=== PATIENT | female | born 1950 | race Caucasian/White ===

== ENCOUNTER 2018-09-27 18:54 | Emergency (ER) | payer SELFPAY ==
[~2018-09-27 18:54] MED LIST: CHOL200072; CLIN300C6 PO; DOCU-7; GEMF600T5 PO; GLU500 PO; IBUP-2218 PO; LEVO500T6 PO; LOSA50TA66 PO; OMEGA KRILL OIL; OXYC1TAB PO; SACC250C1 PO; [UNRECOGNIZED DRUG - OTHER]
--- NOTE | 2018-09-27 19:00 | NUR ---
1ST CALL, PATIENT LEFT WITHOUT BEING SEEN BY DR. FELIX. NO FURTHER CARE PROVIDED FOR PATIENT. 2ND CALL, NO ANSWER. 3RD CALL, NO ANSWER. Addendum: 09/27/18 at 1919 by MEDDCV 1899---1ST CALL, PATIENT LEFT WITHOUT BEING SEEN BY DR. FELIX. NO FURTHER CARE PROVIDED FOR PATIENT. 1909---2ND CALL, NO ANSWER. 1919---3RD CALL, NO ANSWER.
--- NOTE | 2018-09-27 19:00 | NUR ---
PATIENT CALLED TO BE TRIAGE, NO ANSWER.
== END 2018-09-27 19:06 | disposition left against medical advice (07) ==
LOC: MED 18:54
DX: Z53.21 Procedure and treatment not carried out due to patient leaving prior to being seen by health care provider (principal)

== ENCOUNTER 2022-08-31 15:20 | Emergency (ER) | payer MEDICARE ==
[~2022-08-31] VITALS: Ht 162.6 cm; Wt 62.3 kg
[~2022-08-31 15:20] MED LIST changes: -CLIN300C6 PO; +CLIN300C61 PO
[2022-08-31 15:41] VITALS: BP 177/78
--- NOTE | 2022-08-31 15:50 | NUR ---
PT AMB TO BED 6.
--- NOTE | 2022-08-31 16:02 | NUR ---
DR ONEILL AT BEDSIDE.
--- NOTE | 2022-08-31 16:04 | NUR ---
72 Y/O F BIB SELF REFERRED FROM CLINIC /O LOSS OF VISON RIGHT EYE& PAIN STATED AT 10 AM TODAY. PMH: HTN, STOLL PALSY, GOLD EYELID IMPLANT, LEFT KIDNEY STONE
--- NOTE | 2022-08-31 16:13 | NUR ---
Patient discharged with v/s stable. Written and verbal after care instructions given and explained. Patient verbalized understanding. Ambulatory with steady gait. All questions addressed prior to discharge. Advised to follow up with PMD.
--- NOTE | 2022-08-31 16:14 | NUR ---
The patient's care was reviewed and supervised by Keesha Figueroa, RN, RN.
== END 2022-08-31 16:13 | disposition home or self-care (01) ==
LOC: MED 15:20
DX: H54.61 Unqualified visual loss, right eye, normal vision left eye (principal); J45.909 Unspecified asthma, uncomplicated; I10 Essential (primary) hypertension; E11.9 Type 2 diabetes mellitus without complications; Z79.4 Long term (current) use of insulin; Z79.899 Other long term (current) drug therapy; Z88.2 Allergy status to sulfonamides; Z88.8 Allergy status to other drugs, medicaments and biological substances
CPT/HCPCS: 99281

== ENCOUNTER 2023-01-03 15:20 | Emergency (ER) | payer MEDICARE ==
[~2023-01-03] VITALS: Ht 162.6 cm; Wt 59.0 kg
[2023-01-03 15:49] VITALS: BP 142/95; PULSE 75; RESP 20; TEMP 98
--- NOTE | 2023-01-03 17:00 | NUR ---
X-Ray at bedside.
[2023-01-03] MEDS ORDERED: ACETAMINOPHEN 325 MG TAB PO ONE (17:55)
[2023-01-03 22:51] VITALS: O2SAT 98
== END 2023-01-03 18:44 | disposition home or self-care (01) ==
LOC: MED 15:20
DX: S42.201A Unspecified fracture of upper end of right humerus, initial encounter for closed fracture (principal); J45.909 Unspecified asthma, uncomplicated; E11.9 Type 2 diabetes mellitus without complications; I10 Essential (primary) hypertension; E78.5 Hyperlipidemia, unspecified; Z98.890 Other specified postprocedural states; Z79.899 Other long term (current) drug therapy; Z79.2 Long term (current) use of antibiotics; Z79.1 Long term (current) use of non-steroidal anti-inflammatories (NSAID); Z88.2 Allergy status to sulfonamides; Z88.5 Allergy status to narcotic agent; W01.0XXA Fall on same level from slipping, tripping and stumbling without subsequent striking against object, initial encounter; Y92.89 Other specified places as the place of occurrence of the external cause; Y93.89 Activity, other specified; Y99.8 Other external cause status
CPT/HCPCS: 73030; 99283

== ENCOUNTER 2023-03-30 19:36 | Emergency (ER) | payer MEDICARE ==
[~2023-03-30] VITALS: Ht 167.6 cm; Wt 81.6 kg
[2023-03-30 19:39] VITALS: BP 143/76; PULSE 98; RESP 20; TEMP 100.5
[2023-03-30] MEDS ORDERED: cefTRIAXone 1,000 MG in DEXT 5% MINI-BAG PLUS 50 ML IV ONE (20:20)
[2023-03-30] MEDS ORDERED: cefTRIAXone 1,000 MG VIAL ONE (20:29)
[2023-03-30 20:51] LABS: BASOPHILS # (AUTO) 0.1 K/uL (0.00-0.22); BASOPHILS % (AUTO) 0.5 % (0.0-2.0); EOSINOPHILS % (AUTO) 0.3 % (0.0-4.0); HEMATOCRIT 33.1 % (36-48); HEMOGLOBIN 10.5 g/dL (12.0-16.0); LYMPHOCYTES # (AUTO) 0.3 K/uL (2.5-16.5); LYMPHOCYTES % (AUTO) 2.6 % (20.5-51.1); MEAN CORPUSCULAR HEMOGLOBIN 19 pg (27-31); MEAN CORPUSCULAR HGB CONC 32 g/dL (33-37); MEAN CORPUSCULAR VOLUME 60.7 fL (80-94); MONOCYTES # (AUTO) 0.7 K/uL (0.8-1.0); MONOCYTES % (AUTO) 6.4 % (1.7-9.3); NEUTROPHILS # (AUTO) 10.1 K/uL (1.8-7.7); NEUTROPHILS % (AUTO) 90.2 % (42.2-75.2); PLATELET COUNT (AUTO) 229 K/uL (140-450); RED BLOOD CELL COUNT(AUTO) 5.46 MIL/uL (4.20-5.40); RED CELL DISTRIBUTION WIDTH 16.6 % (11.6-13.7); WHITE BLOOD COUNT (AUTO) 11.2 K/uL (4.8-10.8)
[2023-03-30 21:14] LABS: ALANINE AMINOTRANSFERASE 14 U/L (12-78); ALKALINE PHOSPHATASE 106 U/L (50-136); ASPARTATE AMINOTRANSFERASE 13 U/L (15-37); CALCIUM 8.7 mg/dL (8.5-10.1); CARBON DIOXIDE 23.3 mmol/L (21-32); CHLORIDE 104 mmol/L (98-107); CREATININE 1.7 mg/dL (0.6-1.3); GLUCOSE 132 mg/dL (74-106); POTASSIUM 3.3 mmol/L (3.5-5.1); SODIUM SERUM 139 mmol/L (136-145); TOTAL BILIRUBIN 1.3 mg/dL (0.0-1.0); TOTAL PROTEIN, SERUM 6.8 g/dL (6.4-8.2); UREA NITROGEN, BLOOD 45 mg/dL (7-18)
[2023-03-30 22:20] VITALS: O2SAT 97
[2023-03-30 22:24] LABS: APPEARANCE,URINE CLEAR (CLEAR); BILIRUBIN,URINE NEGATIVE (NEGATIVE); BLOOD, URINE NEGATIVE (NEGATIVE); COLOR,URINE YELLOW (YELLOW); LEUKOCYTE ESTERASE ,URINE TRACE (NEGATIVE); NITRITE, URINE NEGATIVE (NEGATIVE); PROTEIN,URINE TRACE (NEGATIVE); UGLUCOSE NEGATIVE (NEGATIVE); UROBILINOGEN,URINE 0.2 EU/dL (0.2 - 1)
[2023-03-30 22:36] LABS: RBC,URINE 0-5 /HPF (0-5)
[2023-03-30 22:37] LABS: BACTERIA,URINE 1+ /HPF (None Seen); SQUAMOUS EPITHELIAL CELL,UR 0-3 (FEW) /LPF (0-3 (FEW)); WBC,URINE 0-5 /HPF (0-5)
[2023-03-30 22:45] LABS: FLU A ANTIGEN negative (NEGATIVE); FLU B ANTIGEN NEGATIVE (NEGATIVE)
[2023-03-31 00:22] VITALS: O2SAT 97
[2023-03-31] MEDS ORDERED: NACL 0.9% 1,000 ML IV ONE ×2 (00:30→07:00)
[2023-03-31 01:55] LABS: BLOOD GAS PCO2 25.5 mmHg (35-45); BLOOD GAS PH 7.439 (7.35-7.45); BLOOD GAS PO2 98.8 mmHg (75-100)
[2023-03-31 01:56] LABS: BLOOD GAS HCO3 16.9 mmol/L (22-26)
[2023-03-31 01:57] LABS: BLOOD GAS O2 SAT% 97.1 % (92.0-98.5)
[2023-03-31 03:15] VITALS: O2SAT 98
[2023-03-31] MEDS ORDERED: MAG SULF 2000 MG/WATER PREMIX 50 ML IV ONE (05:40)
[2023-03-31] MEDS ORDERED: methylPREDNISolone SS 125 MG in WATER STERILE 2 ML IV ONE (05:40)
[2023-03-31] MEDS ORDERED: AMOX-999 PO (06:24)
[2023-03-31] MEDS ORDERED: METH4TAB1 PO (06:24)
[2023-03-31] MEDS ORDERED: methylPREDNISolone SS 125 MG/2 ML VIAL ONE (06:57)
[2023-03-31 07:05] VITALS: O2SAT 97
[2023-03-31 09:31] VITALS: BP 155/88; PULSE 87; RESP 14; TEMP 97.9; O2SAT 98
== END 2023-03-31 09:31 | disposition home or self-care (01) ==
LOC: MED 19:36
DX: R50.9 Fever, unspecified (principal); R05.9 Cough, unspecified; R63.0 Anorexia; M79.10 Myalgia, unspecified site; I10 Essential (primary) hypertension; J45.909 Unspecified asthma, uncomplicated; Z98.890 Other specified postprocedural states; Z88.2 Allergy status to sulfonamides; Z88.5 Allergy status to narcotic agent; Z79.899 Other long term (current) drug therapy; Z20.822 Contact with and (suspected) exposure to COVID-19
CPT/HCPCS: 36415; 36600; 70450; 71045; 71275; 80053; 81001; 82803; 83605; 83880; 84484; 85025; 85379; 87040; 87426; 87804; 93005; 93970; 96361; 96365; 96366; 96367; 96375; 99285; J0696; J2930; J3475; J7030; Q0092; Q9967; J0713

== ENCOUNTER 2023-04-06 12:26 | Emergency (ER) | payer MEDICARE ==
[~2023-04-06] VITALS: Ht 160 cm; Wt 68.0 kg
[~2023-04-06 12:26] MED LIST changes: +AMOX-999 PO; +METH4TAB1 PO
[2023-04-06 12:35] VITALS: BP 154/98; PULSE 90; RESP 18; O2SAT 96
[2023-04-06] MEDS ORDERED: MORPHINE SULFATE 4 MG/ML SYR IVP ONE (14:10)
[2023-04-06 14:39] LABS: BASOPHILS # (AUTO) 0.1 K/uL (0.00-0.22); BASOPHILS % (AUTO) 0.4 % (0.0-2.0); EOSINOPHILS # (AUTO) 0.2 K/uL (0-0.4); EOSINOPHILS % (AUTO) 1.7 % (0.0-4.0); HEMATOCRIT 34.7 % (36-48); LYMPHOCYTES # (AUTO) 0.9 K/uL (2.5-16.5); LYMPHOCYTES % (AUTO) 7.2 % (20.5-51.1); MEAN CORPUSCULAR HEMOGLOBIN 19 pg (27-31); MEAN CORPUSCULAR HGB CONC 32 g/dL (33-37); MEAN CORPUSCULAR VOLUME 60.9 fL (80-94); MONOCYTES # (AUTO) 0.9 K/uL (0.8-1.0); MONOCYTES % (AUTO) 7.8 % (1.7-9.3); NEUTROPHILS # (AUTO) 9.9 K/uL (1.8-7.7); NEUTROPHILS % (AUTO) 82.9 % (42.2-75.2); PLATELET COUNT (AUTO) 282 K/uL (140-450); RED CELL DISTRIBUTION WIDTH 16.1 % (11.6-13.7)
[2023-04-06 14:57] LABS: ALANINE AMINOTRANSFERASE 18 U/L (12-78); ALBUMIN 3.1 g/dL (3.4-5.0); ALKALINE PHOSPHATASE 92 U/L (50-136); ANION GAP 11.5 (8-16); ASPARTATE AMINOTRANSFERASE 13 U/L (15-37); CALCIUM 8.7 mg/dL (8.5-10.1); CHLORIDE 105 mmol/L (98-107); CREATININE 0.9 mg/dL (0.6-1.3); GLUCOSE 102 mg/dL (74-106); POTASSIUM 3.5 mmol/L (3.5-5.1); SODIUM SERUM 139 mmol/L (136-145); TOTAL BILIRUBIN 1.1 mg/dL (0.0-1.0); TOTAL PROTEIN, SERUM 6.5 g/dL (6.4-8.2); UREA NITROGEN, BLOOD 15 mg/dL (7-18)
[2023-04-06] MEDS ORDERED: IBUP-2213 PO (15:15)
[2023-04-06] MEDS ORDERED: HYDR-5191 PO (15:15)
[2023-04-06 17:52] VITALS: BP 130/78; PULSE 74; RESP 18; TEMP 98; O2SAT 98
== END 2023-04-06 15:24 | disposition home or self-care (01) ==
LOC: MED 12:26
DX: R51.9 Headache, unspecified (principal); R07.89 Other chest pain; M54.2 Cervicalgia; J45.909 Unspecified asthma, uncomplicated; E11.9 Type 2 diabetes mellitus without complications; I10 Essential (primary) hypertension; Z88.2 Allergy status to sulfonamides; Z88.5 Allergy status to narcotic agent; Z79.899 Other long term (current) drug therapy; Z98.890 Other specified postprocedural states
CPT/HCPCS: 36415; 70450; 71045; 80053; 81002; 83880; 84484; 85025; 93005; 96374; 99285; J2270

== ENCOUNTER 2023-04-26 10:13 | Inpatient (IN) | payer MEDICARE ==
[~2023-04-26] VITALS: Ht 165.1 cm; Wt 68.0 kg
[~2023-04-26 10:13] MED LIST changes: +HYDR-5191 PO; +IBUP-2213 PO
[2023-04-26 10:21] VITALS: BP 109/61; PULSE 94; RESP 18; TEMP 97.5; O2SAT 95
[2023-04-26 10:44] LABS: BASOPHILS # (AUTO) 0.1 K/uL (0.00-0.22); BASOPHILS % (AUTO) 0.8 % (0.0-2.0); EOSINOPHILS # (AUTO) 0.2 K/uL (0-0.4); EOSINOPHILS % (AUTO) 2.2 % (0.0-4.0); HEMATOCRIT 29.5 % (36-48); HEMOGLOBIN 9.3 g/dL (12.0-16.0); LYMPHOCYTES # (AUTO) 0.6 K/uL (2.5-16.5); LYMPHOCYTES % (AUTO) 7.6 % (20.5-51.1); MEAN CORPUSCULAR HEMOGLOBIN 19 pg (27-31); MEAN CORPUSCULAR HGB CONC 31 g/dL (33-37); MEAN CORPUSCULAR VOLUME 59.4 fL (80-94); MONOCYTES # (AUTO) 0.8 K/uL (0.8-1.0); MONOCYTES % (AUTO) 9.3 % (1.7-9.3); NEUTROPHILS # (AUTO) 6.6 K/uL (1.8-7.7); NEUTROPHILS % (AUTO) 80.1 % (42.2-75.2); PLATELET COUNT (AUTO) 405 K/uL (140-450); RED BLOOD CELL COUNT(AUTO) 4.96 MIL/uL (4.20-5.40); RED CELL DISTRIBUTION WIDTH 16.6 % (11.6-13.7); WHITE BLOOD COUNT (AUTO) 8.2 K/uL (4.8-10.8)
[2023-04-26 11:05] LABS: ALANINE AMINOTRANSFERASE 17 U/L (12-78); ALBUMIN 2.5 g/dL (3.4-5.0); ALKALINE PHOSPHATASE 113 U/L (50-136); ANION GAP 12.6 (8-16); ASPARTATE AMINOTRANSFERASE 30 U/L (15-37); CARBON DIOXIDE 31.8 mmol/L (21-32); CHLORIDE 97 mmol/L (98-107); CREATININE 0.8 mg/dL (0.6-1.3); GLUCOSE 106 mg/dL (74-106); POTASSIUM 3.4 mmol/L (3.5-5.1); SODIUM SERUM 138 mmol/L (136-145); TOTAL BILIRUBIN 1.2 mg/dL (0.0-1.0); UREA NITROGEN, BLOOD 14 mg/dL (7-18)
[2023-04-26 11:07] LABS: LIPASE 30 U/L (16-77)
[2023-04-26 11:10] LABS: LACTIC ACID 1.1 mmol/L (0.4-2.0)
[2023-04-26] MEDS ORDERED: MORPHINE SULFATE 2 MG/ML SYR IVP ONE (12:35)
[2023-04-26] MEDS ORDERED: AZITHROMYCIN 500 MG in DEXTROSE 5% 250 ML IV ONE (13:40)
[2023-04-26 13:42] LABS: APPEARANCE,URINE CLEAR (CLEAR); BILIRUBIN,URINE 2+ (NEGATIVE); BLOOD, URINE NEGATIVE (NEGATIVE); LEUKOCYTE ESTERASE ,URINE NEGATIVE (NEGATIVE); NITRITE, URINE NEGATIVE (NEGATIVE); PH,URINE 6.5 (5.0-9.0); PROTEIN,URINE TRACE (NEGATIVE); UGLUCOSE NEGATIVE (NEGATIVE)
[2023-04-26 13:45] LABS: COLOR,URINE GREEN (YELLOW)
[2023-04-26 13:51] LABS: ICTOTEST NEGATIVE (NEGATIVE)
[2023-04-26] MEDS ORDERED: HEPARIN PER PHARMACY MC PRN (13:55)
[2023-04-26] MEDS ORDERED: cefTRIAXone 1,000 MG VIAL ONE (14:12)
[2023-04-26] MEDS ORDERED: AZITHROMYCIN 500 MG INJ VIAL IV ONE (15:06)
[2023-04-26] MEDS ORDERED: HYDROcodone/APAP 5/325 MG 1 TAB TAB PO ONE (15:50)
[2023-04-26] MEDS ORDERED: HYDROcodone/APAP 5/325 MG 1 TAB TAB PO PRN (16:00)
[2023-04-26] MEDS ORDERED: ONDANSETRON 4 MG/2 ML VIAL IVP PRN (16:00)
[2023-04-26] MEDS ORDERED: ACETAMINOPHEN 325 MG TAB PO PRN (16:00)
[2023-04-26] MEDS ORDERED: POTASSIUM CHLORIDE 10 MEQ TABER PO PRN (16:00)
[2023-04-26] MEDS ORDERED: MAGNESIUM OXIDE 400 MG TAB PO PRN (16:00)
[2023-04-26] MEDS: NACL 0.9% 1,000 ML IV SCH (16:45)
[2023-04-26 16:53] LABS: INR 1.32 (0.8-1.2); PARTIAL THROMBOPLASTIN TIME 24.5 secs (22-35.6); PROTHROMBIN TIME 13.6 secs (10.8-13.4)
[2023-04-26 17:00] VITALS: PULSE 84; RESP 24; O2SAT 96
[2023-04-26 17:05] VITALS: PULSE 84; RESP 18; O2SAT 95
[2023-04-26] MEDS: hePARIN / DEXT 5% PREMIX 250 ML IV SCH (17:29)
[2023-04-26] MEDS: MORPHINE SULFATE 4 MG/ML SYR IVP PRN (18:06)
[2023-04-26 20:00] VITALS: BP 133/69; PULSE 58; PULSE 76; RESP 18; TEMP 98.1; O2SAT 100; O2SAT 95
[2023-04-27] VITALS (9 sets, daily range): BP systolic 136–163; BP diastolic 69–96; PULSE 82–120; RESP 16–19; TEMP 97.3–98.4; O2SAT 95–100
[2023-04-27] MEDS: hePARIN / DEXT 5% PREMIX 250 ML IV SCH ×4 (00:03→21:23)
[2023-04-27] MEDS: MORPHINE SULFATE 4 MG/ML SYR IVP PRN ×4 (03:35→17:43)
[2023-04-27] MEDS: NACL 0.9% 1,000 ML IV SCH ×2 (04:30→17:39)
[2023-04-27 06:39] LABS: ALANINE AMINOTRANSFERASE 11 U/L (12-78); ALBUMIN 2.1 g/dL (3.4-5.0); ALKALINE PHOSPHATASE 95 U/L (50-136); ANION GAP 10.2 (8-16); ASPARTATE AMINOTRANSFERASE 20 U/L (15-37); CALCIUM 8.5 mg/dL (8.5-10.1); CARBON DIOXIDE 32.5 mmol/L (21-32); CHLORIDE 98 mmol/L (98-107); CREATININE 0.7 mg/dL (0.6-1.3); GLUCOSE 95 mg/dL (74-106); POTASSIUM 3.7 mmol/L (3.5-5.1); SODIUM SERUM 137 mmol/L (136-145); TOTAL BILIRUBIN 0.7 mg/dL (0.0-1.0); TOTAL PROTEIN, SERUM 6.1 g/dL (6.4-8.2); UREA NITROGEN, BLOOD 10 mg/dL (7-18)
[2023-04-27] MEDS ORDERED: LORazepam 2 MG/ML VIAL IVP PRN (20:30)
[2023-04-28] VITALS (7 sets, daily range): BP systolic 125–164; BP diastolic 68–82; PULSE 82–92; RESP 16–20; TEMP 96.8–98.6; O2SAT 95–99
[2023-04-28] MEDS: NACL 0.9% 1,000 ML IV SCH ×2 (05:26→18:26)
[2023-04-28 07:54] LABS: ALANINE AMINOTRANSFERASE 5 U/L (12-78); ALBUMIN 1.9 g/dL (3.4-5.0); ALKALINE PHOSPHATASE 89 U/L (50-136); ANION GAP 8.9 (8-16); ASPARTATE AMINOTRANSFERASE 12 U/L (15-37); CALCIUM 8.5 mg/dL (8.5-10.1); CARBON DIOXIDE 29.7 mmol/L (21-32); CHLORIDE 101 mmol/L (98-107); CREATININE 0.7 mg/dL (0.6-1.3); GLUCOSE 94 mg/dL (74-106); POTASSIUM 3.6 mmol/L (3.5-5.1); SODIUM SERUM 136 mmol/L (136-145); TOTAL BILIRUBIN 0.7 mg/dL (0.0-1.0); TOTAL PROTEIN, SERUM 5.8 g/dL (6.4-8.2); UREA NITROGEN, BLOOD 8 mg/dL (7-18)
[2023-04-28] MEDS: MORPHINE SULFATE 4 MG/ML SYR IVP PRN ×3 (08:14→18:18)
[2023-04-28 10:09] LABS: BASOPHILS % (AUTO) 0.7 % (0.0-2.0); EOSINOPHILS # (AUTO) 0.1 K/uL (0-0.4); EOSINOPHILS % (AUTO) 1.8 % (0.0-4.0); HEMATOCRIT 24.7 % (36-48); HEMOGLOBIN 7.6 g/dL (12.0-16.0); LYMPHOCYTES # (AUTO) 0.8 K/uL (2.5-16.5); LYMPHOCYTES % (AUTO) 11.9 % (20.5-51.1); MEAN CORPUSCULAR HEMOGLOBIN 19 pg (27-31); MEAN CORPUSCULAR HGB CONC 31 g/dL (33-37); MEAN CORPUSCULAR VOLUME 60.1 fL (80-94); MONOCYTES # (AUTO) 0.9 K/uL (0.8-1.0); MONOCYTES % (AUTO) 13.7 % (1.7-9.3); NEUTROPHILS # (AUTO) 4.7 K/uL (1.8-7.7); NEUTROPHILS % (AUTO) 71.9 % (42.2-75.2); PLATELET COUNT (AUTO) 308 K/uL (140-450); RED CELL DISTRIBUTION WIDTH 16.2 % (11.6-13.7); WHITE BLOOD COUNT (AUTO) 6.5 K/uL (4.8-10.8)
[2023-04-28] MEDS: hePARIN / DEXT 5% PREMIX 250 ML IV SCH (21:01)
[2023-04-29] VITALS: BP 152/85; PULSE 100; PULSE 92; RESP 18; TEMP 96.8; O2SAT 95
[2023-04-29 04:00] VITALS: BP 159/88; PULSE 85; PULSE 86; RESP 20; TEMP 96.6; O2SAT 95
[2023-04-29] MEDS: NACL 0.9% 1,000 ML IV SCH ×2 (06:25→19:00)
[2023-04-29 06:44] LABS: ALANINE AMINOTRANSFERASE 8 U/L (12-78); ALKALINE PHOSPHATASE 92 U/L (50-136); ANION GAP 11.1 (8-16); ASPARTATE AMINOTRANSFERASE 11 U/L (15-37); CALCIUM 8.4 mg/dL (8.5-10.1); CARBON DIOXIDE 28.5 mmol/L (21-32); CHLORIDE 98 mmol/L (98-107); CREATININE 0.6 mg/dL (0.6-1.3); GLUCOSE 101 mg/dL (74-106); POTASSIUM 3.6 mmol/L (3.5-5.1); SODIUM SERUM 134 mmol/L (136-145); TOTAL BILIRUBIN 0.6 mg/dL (0.0-1.0); UREA NITROGEN, BLOOD 8 mg/dL (7-18)
[2023-04-29 08:00] VITALS: BP 139/88; PULSE 81; PULSE 85; RESP 20; TEMP 98.5; O2SAT 97
[2023-04-29 12:00] VITALS: BP 158/79; PULSE 82; PULSE 86; RESP 20; TEMP 98.4; O2SAT 97
[2023-04-29 16:00] VITALS: BP 159/94; PULSE 90; PULSE 91; RESP 20; TEMP 98.3; O2SAT 97
[2023-04-29] MEDS: hePARIN / DEXT 5% PREMIX 250 ML IV SCH ×2 (16:24→19:21)
[2023-04-29 20:00] VITALS: BP 160/79; PULSE 87; PULSE 93; RESP 20; TEMP 98.4; O2SAT 97
[2023-04-29] MEDS: PANTOPRAZOLE 40 MG INJ VIAL IVP SCH (20:42)
[2023-04-30] VITALS (9 sets, daily range): BP systolic 150–178; BP diastolic 79–97; PULSE 83–109; RESP 16–20; TEMP 97.4–99.3; O2SAT 92–99
[2023-04-30] MEDS: MORPHINE SULFATE 4 MG/ML SYR IVP PRN ×2 (00:21→13:46)
[2023-04-30] MEDS: NACL 0.9% 1,000 ML IV SCH ×2 (03:35→20:00)
[2023-04-30] MEDS ORDERED: PANTOPRAZOLE 40 MG INJ VIAL IVP SCH (09:00)
[2023-04-30 09:14] LABS: ALANINE AMINOTRANSFERASE 12 U/L (12-78); ALBUMIN 2.1 g/dL (3.4-5.0); ALKALINE PHOSPHATASE 109 U/L (50-136); ANION GAP 12.3 (8-16); ASPARTATE AMINOTRANSFERASE 27 U/L (15-37); CALCIUM 8.3 mg/dL (8.5-10.1); CARBON DIOXIDE 28.1 mmol/L (21-32); CHLORIDE 97 mmol/L (98-107); CREATININE 0.6 mg/dL (0.6-1.3); GLUCOSE 95 mg/dL (74-106); POTASSIUM 3.4 mmol/L (3.5-5.1); SODIUM SERUM 134 mmol/L (136-145); TOTAL BILIRUBIN 0.8 mg/dL (0.0-1.0); TOTAL PROTEIN, SERUM 6.4 g/dL (6.4-8.2); UREA NITROGEN, BLOOD 6 mg/dL (7-18)
[2023-04-30] MEDS: PANTOPRAZOLE 40 MG INJ VIAL IVP SCH ×2 (09:28→20:23)
[2023-04-30] MEDS: hydrALAZINE 20 MG/ML VIAL IVP PRN (17:06)
[2023-05-01] VITALS (9 sets, daily range): BP systolic 127–158; BP diastolic 77–99; PULSE 81–97; RESP 18–20; TEMP 96.5–98.3; O2SAT 92–97
[2023-05-01] MEDS: NACL 0.9% 1,000 ML IV SCH ×2 (02:12→20:36)
[2023-05-01 02:30] LABS: ALANINE AMINOTRANSFERASE 14 U/L (12-78); ALBUMIN 2.2 g/dL (3.4-5.0); ALKALINE PHOSPHATASE 108 U/L (50-136); ANION GAP 12.3 (8-16); ASPARTATE AMINOTRANSFERASE 19 U/L (15-37); CALCIUM 8.4 mg/dL (8.5-10.1); CARBON DIOXIDE 28.3 mmol/L (21-32); CHLORIDE 96 mmol/L (98-107); CREATININE 0.7 mg/dL (0.6-1.3); GLUCOSE 111 mg/dL (74-106); POTASSIUM 3.6 mmol/L (3.5-5.1); SODIUM SERUM 133 mmol/L (136-145); TOTAL BILIRUBIN 0.8 mg/dL (0.0-1.0); TOTAL PROTEIN, SERUM 6.5 g/dL (6.4-8.2); UREA NITROGEN, BLOOD 6 mg/dL (7-18)
[2023-05-01] MEDS ORDERED: fentaNYL citrate 0.05 MG/ML VIAL ONE (08:35)
[2023-05-01] MEDS ORDERED: diphenhydrAMINE 50 MG/ML VIAL ONE ×2 (08:35→08:38)
[2023-05-01] MEDS ORDERED: MIDAZOLAM 5 MG/5 ML VIAL ONE (08:35)
[2023-05-01 10:07] LABS: BASOPHILS % (AUTO) 0.6 % (0.0-2.0); EOSINOPHILS # (AUTO) 0.1 K/uL (0-0.4); HEMATOCRIT 25.1 % (36-48); HEMOGLOBIN 8.2 g/dL (12.0-16.0); LYMPHOCYTES # (AUTO) 0.4 K/uL (2.5-16.5); LYMPHOCYTES % (AUTO) 8.1 % (20.5-51.1); MEAN CORPUSCULAR HEMOGLOBIN 19 pg (27-31); MEAN CORPUSCULAR HGB CONC 33 g/dL (33-37); MEAN CORPUSCULAR VOLUME 58.3 fL (80-94); MONOCYTES # (AUTO) 0.5 K/uL (0.8-1.0); MONOCYTES % (AUTO) 10.2 % (1.7-9.3); NEUTROPHILS # (AUTO) 4.1 K/uL (1.8-7.7); NEUTROPHILS % (AUTO) 79.1 % (42.2-75.2); PLATELET COUNT (AUTO) 307 K/uL (140-450); RED BLOOD CELL COUNT(AUTO) 4.31 MIL/uL (4.20-5.40); WHITE BLOOD COUNT (AUTO) 5.1 K/uL (4.8-10.8)
[2023-05-01] MEDS: PANTOPRAZOLE 40 MG INJ VIAL IVP SCH ×2 (12:07→20:36)
[2023-05-01] MEDS: SUPREP BOWEL PREP KIT 354 ML SOLN.RECON PO SCH (14:54)
[2023-05-01] MEDS: hePARIN / DEXT 5% PREMIX 250 ML IV SCH ×2 (16:46→23:18)
[2023-05-02] VITALS: BP 152/89; PULSE 86; RESP 18; TEMP 97.5; O2SAT 96
[2023-05-02 04:00] VITALS: BP 154/85; PULSE 82; PULSE 94; RESP 17; TEMP 98.5; O2SAT 96
[2023-05-02] MEDS: SUPREP BOWEL PREP KIT 354 ML SOLN.RECON PO SCH ×2 (05:08→14:00)
[2023-05-02 08:00] VITALS: BP 178/83; PULSE 80; PULSE 83; RESP 18; TEMP 98.7; O2SAT 96
[2023-05-02] MEDS: PANTOPRAZOLE 40 MG INJ VIAL IVP SCH ×2 (08:46→20:51)
[2023-05-02] MEDS: NACL 0.9% 1,000 ML IV SCH (09:30)
[2023-05-02] MEDS: hydrALAZINE 20 MG/ML VIAL IVP PRN (10:35)
[2023-05-02 12:00] VITALS: BP 156/76; PULSE 80; PULSE 84; RESP 18; TEMP 98.6; O2SAT 97
[2023-05-02] MEDS ORDERED: MIDAZOLAM 2 MG/2 ML VIAL ONE ×2 (14:23→14:24)
[2023-05-02] MEDS ORDERED: fentaNYL citrate 0.05 MG/ML VIAL ONE (14:23)
[2023-05-02] MEDS ORDERED: MIDAZOLAM 2 MG/2 ML VIAL IVP ONE (15:20)
[2023-05-02] MEDS ORDERED: fentaNYL citrate 0.05 MG/ML VIAL IVP ONE (15:20)
[2023-05-02] MEDS: hePARIN / DEXT 5% PREMIX 250 ML IV SCH (15:44)
[2023-05-02 16:00] VITALS: BP 140/77; PULSE 83; PULSE 84; RESP 18; TEMP 98.3; O2SAT 98
[2023-05-02 20:00] VITALS: BP 152/77; PULSE 78; PULSE 81; RESP 18; TEMP 97.8; O2SAT 93
[2023-05-03] VITALS (10 sets, daily range): BP systolic 109–161; BP diastolic 68–79; PULSE 73–87; RESP 16–18; TEMP 97–98.8; O2SAT 93–100
[2023-05-03] MEDS: hePARIN / DEXT 5% PREMIX 250 ML IV SCH ×2 (01:08→04:24)
[2023-05-03] MEDS: NACL 0.9% 1,000 ML IV SCH ×3 (01:13→13:11)
[2023-05-03] MEDS: PANTOPRAZOLE 40 MG INJ VIAL IVP SCH ×2 (08:14→22:52)
[2023-05-03] MEDS: hydrALAZINE 20 MG/ML VIAL IVP PRN (12:10)
[2023-05-03 15:06] LABS: BASOPHILS % (AUTO) 0.7 % (0.0-2.0); EOSINOPHILS # (AUTO) 0.2 K/uL (0-0.4); EOSINOPHILS % (AUTO) 2.8 % (0.0-4.0); HEMATOCRIT 24.7 % (36-48); LYMPHOCYTES # (AUTO) 0.6 K/uL (2.5-16.5); LYMPHOCYTES % (AUTO) 11.7 % (20.5-51.1); MEAN CORPUSCULAR HEMOGLOBIN 19 pg (27-31); MEAN CORPUSCULAR HGB CONC 33 g/dL (33-37); MEAN CORPUSCULAR VOLUME 58.1 fL (80-94); MONOCYTES # (AUTO) 0.4 K/uL (0.8-1.0); MONOCYTES % (AUTO) 8.1 % (1.7-9.3); NEUTROPHILS # (AUTO) 4.1 K/uL (1.8-7.7); NEUTROPHILS % (AUTO) 76.7 % (42.2-75.2); PLATELET COUNT (AUTO) 268 K/uL (140-450); RED BLOOD CELL COUNT(AUTO) 4.26 MIL/uL (4.20-5.40); RED CELL DISTRIBUTION WIDTH 16.9 % (11.6-13.7); WHITE BLOOD COUNT (AUTO) 5.3 K/uL (4.8-10.8)
[2023-05-03] MEDS: APIXABAN 2.5 MG TAB PO SCH (21:50)
[2023-05-04] VITALS (9 sets, daily range): BP systolic 124–165; BP diastolic 68–82; PULSE 69–86; RESP 16–18; TEMP 96.8–98.4; O2SAT 95–100
[2023-05-04] MEDS: NACL 0.9% 1,000 ML IV SCH ×2 (02:52→11:30)
[2023-05-04] MEDS: PANTOPRAZOLE 40 MG INJ VIAL IVP SCH (08:34)
[2023-05-04] MEDS: hydrALAZINE 20 MG/ML VIAL IVP PRN (08:35)
[2023-05-04] MEDS: APIXABAN 2.5 MG TAB PO SCH (08:41)
[2023-05-04] MEDS ORDERED: PANT40EC PO (15:41)
[2023-05-04] MEDS ORDERED: APIX2.5 PO (15:41)
[2023-05-04] MEDS ORDERED: APIX5TAB PO (15:41)
== END 2023-05-04 16:57 | DRG 871 ==
LOC: MED 10:13 → MTU 16:01 → MMU 17:00 → OBSVTOIN 04-28 15:39
PROVIDERS: ADMIT Student in an Organized Health Care Education/Training Program; ATTEND Student in an Organized Health Care Education/Training Program
PROC: 0DBH8ZX Excision of Cecum, Via Natural or Artificial Opening Endoscopic, Diagnostic (ICD-10-PCS; principal; 2023-05-01 09:20)
DX: A41.9 Sepsis, unspecified organism (principal); I26.99 Other pulmonary embolism without acute cor pulmonale; J18.9 Pneumonia, unspecified organism; J96.01 Acute respiratory failure with hypoxia; K51.911 Ulcerative colitis, unspecified with rectal bleeding; D50.9 Iron deficiency anemia, unspecified; E11.9 Type 2 diabetes mellitus without complications; I10 Essential (primary) hypertension; J45.909 Unspecified asthma, uncomplicated; K20.90 Esophagitis, unspecified without bleeding; R13.10 Dysphagia, unspecified; E78.5 Hyperlipidemia, unspecified; K57.30 Diverticulosis of large intestine without perforation or abscess without bleeding; K64.5 Perianal venous thrombosis; Z86.73 Personal history of transient ischemic attack (TIA), and cerebral infarction without residual deficits; Z88.2 Allergy status to sulfonamides; Z88.8 Allergy status to other drugs, medicaments and biological substances
CPT/HCPCS: 36415; 71045; 71275; 76830; 80053; 81003; 82948; 83605; 83690; 83880; 84484; 85025; 85610; 85730; 87040; 87070; 87081; 88305; 92526; 93005; 94761; 97112; 97116; 97530; C9113; G0378; J0360; J0456; J0696; J1200; J1644; J2060; J2250; J2270; J2405; J3010; J7060; Q0092; Q9967

== ENCOUNTER 2023-11-18 13:48 | Emergency (ER) | payer MEDICARE ==
[~2023-11-18] VITALS: Ht 162.6 cm; Wt 47.2 kg
[~2023-11-18 13:48] MED LIST changes: -AMOX-999 PO; +APIX2.5 PO; -CLIN300C61 PO; -GEMF600T5 PO; -GLU500 PO; +HYDR-5071 PO; -HYDR-5191 PO; -IBUP-2213 PO; -IBUP-2218 PO; -LEVO500T6 PO; -METH4TAB1 PO; -OXYC1TAB PO; +PANT40EC PO
[2023-11-18 13:51] VITALS: BP 185/101; PULSE 86; RESP 22; TEMP 98.4; O2SAT 98
[2023-11-18] MEDS: NACL 0.9% 1,000 ML IV ONE (14:21)
[2023-11-18] MEDS ORDERED: KETOROLAC 15 MG/ML VIAL ONE (14:22)
[2023-11-18] MEDS: KETOROLAC 30 MG/ML VIAL IVP ONE (14:41)
[2023-11-18 14:55] LABS: BASOPHILS # (AUTO) 0.1 K/uL (0.00-0.22); BASOPHILS % (AUTO) 1.3 % (0.0-2.0); CALCIUM 9.9 mg/dL (8.5-10.1); CARBON DIOXIDE 29.3 mmol/L (21-32); CHLORIDE 104 mmol/L (98-107); CREATININE 0.7 mg/dL (0.6-1.3); EOSINOPHILS # (AUTO) 0.1 K/uL (0-0.4); EOSINOPHILS % (AUTO) 2.4 % (0.0-4.0); GLUCOSE 87 mg/dL (74-106); HEMATOCRIT 32.7 % (36-48); HEMOGLOBIN 10.7 g/dL (12.0-16.0); LYMPHOCYTES # (AUTO) 0.7 K/uL (2.5-16.5); MEAN CORPUSCULAR HEMOGLOBIN 21 pg (27-31); MEAN CORPUSCULAR HGB CONC 33 g/dL (33-37); MEAN CORPUSCULAR VOLUME 64.4 fL (80-94); MONOCYTES # (AUTO) 0.3 K/uL (0.8-1.0); MONOCYTES % (AUTO) 8.1 % (1.7-9.3); NEUTROPHILS # (AUTO) 3.1 K/uL (1.8-7.7); NEUTROPHILS % (AUTO) 72.2 % (42.2-75.2); PLATELET COUNT (AUTO) 226 K/uL (140-450); POTASSIUM 3.3 mmol/L (3.5-5.1); RED BLOOD CELL COUNT(AUTO) 5.07 MIL/uL (4.20-5.40); RED CELL DISTRIBUTION WIDTH 17.1 % (11.6-13.7); SODIUM SERUM 143 mmol/L (136-145); UREA NITROGEN, BLOOD 18 mg/dL (7-18); WHITE BLOOD COUNT (AUTO) 4.3 K/uL (4.8-10.8)
[2023-11-18 14:57] LABS: APPEARANCE,URINE CLEAR (CLEAR); BILIRUBIN,URINE NEGATIVE (NEGATIVE); BLOOD, URINE NEGATIVE (NEGATIVE); COLOR,URINE YELLOW (YELLOW); LEUKOCYTE ESTERASE ,URINE TRACE (NEGATIVE); NITRITE, URINE NEGATIVE (NEGATIVE); PH,URINE 6.5 (5.0-9.0); PROTEIN,URINE NEGATIVE (NEGATIVE); UGLUCOSE NEGATIVE (NEGATIVE)
[2023-11-18 15:00] LABS: BACTERIA,URINE 2+ /HPF (None Seen); RBC,URINE 0 /HPF (0-5); SQUAMOUS EPITHELIAL CELL,UR 4-10 (MOD) /LPF (0-3 (FEW)); WBC,URINE 0-5 /HPF (0-5)
[2023-11-18 15:01] LABS: MUCUS,URINE None Seen /LPF (None Seen)
[2023-11-18 15:04] LABS: ANISOCYTOSIS 1+
[2023-11-18 15:05] LABS: POIKILOCYTOSIS 1+; STOMATOCYTES 1+
[2023-11-18 15:09] LABS: THYROID STIMULATING HORMONE 2.28 uIU/mL (0.34-3.74)
[2023-11-18] MEDS ORDERED: DICL20GE TP (16:13)
[2023-11-18] MEDS ORDERED: CEPH-588 PO (16:13)
[2023-11-18] MEDS ORDERED: cefTRIAXone 1,000 MG VIAL ONE (16:28)
[2023-11-18 17:38] VITALS: BP 153/90; PULSE 63; RESP 18; TEMP 98.2; O2SAT 98
== END 2023-11-18 17:40 | disposition home or self-care (01) ==
LOC: MED 13:48
DX: S93.692A Other sprain of left foot, initial encounter (principal); M25.512 Pain in left shoulder; N39.0 Urinary tract infection, site not specified; E11.9 Type 2 diabetes mellitus without complications; I10 Essential (primary) hypertension; Z88.2 Allergy status to sulfonamides; Z88.8 Allergy status to other drugs, medicaments and biological substances; Z79.4 Long term (current) use of insulin; Z79.899 Other long term (current) drug therapy; W18.30XA Fall on same level, unspecified, initial encounter; Y93.89 Activity, other specified; Y92.89 Other specified places as the place of occurrence of the external cause; Y99.8 Other external cause status
CPT/HCPCS: 36415; 73030; 73502; 73630; 80048; 81001; 84443; 84484; 85025; 87086; 93005; 96361; 96365; 96375; 99285; J0696; J1885; J7030; Q0092

== ENCOUNTER 2024-02-11 14:03 | Emergency (ER) | payer MEDICARE, OTHER ==
[~2024-02-11] VITALS: Ht 162.6 cm; Wt 49.9 kg
[~2024-02-11 14:03] MED LIST changes: +CEPH-588 PO; +DICL20GE TP
[2024-02-11 14:17] VITALS: BP 156/68; PULSE 102; RESP 18; TEMP 98.4; O2SAT 97
[2024-02-11] MEDS: KETOROLAC 30 MG/ML VIAL IM ONE (16:39)
[2024-02-11 16:40] VITALS: BP 114/72; PULSE 98; RESP 18; TEMP 98.4; O2SAT 98
[2024-02-11 16:44] LABS: BASOPHILS % (AUTO) 0.2 % (0.0-2.0); EOSINOPHILS % (AUTO) 0.3 % (0.0-4.0); HEMATOCRIT 32.3 % (36-48); HEMOGLOBIN 10.3 g/dL (12.0-16.0); LYMPHOCYTES # (AUTO) 0.6 K/uL (2.5-16.5); MEAN CORPUSCULAR HEMOGLOBIN 21 pg (27-31); MEAN CORPUSCULAR HGB CONC 32 g/dL (33-37); MEAN CORPUSCULAR VOLUME 64.8 fL (80-94); MONOCYTES # (AUTO) 0.6 K/uL (0.8-1.0); MONOCYTES % (AUTO) 4.9 % (1.7-9.3); NEUTROPHILS # (AUTO) 10.2 K/uL (1.8-7.7); NEUTROPHILS % (AUTO) 89.6 % (42.2-75.2); PLATELET COUNT (AUTO) 211 K/uL (140-450); RED BLOOD CELL COUNT(AUTO) 4.98 MIL/uL (4.20-5.40); RED CELL DISTRIBUTION WIDTH 17.2 % (11.6-13.7); WHITE BLOOD COUNT (AUTO) 11.3 K/uL (4.8-10.8)
[2024-02-11 16:55] LABS: ANION GAP 11.3 (8-16); CARBON DIOXIDE 29.4 mmol/L (21-32); CHLORIDE 104 mmol/L (98-107); CREATININE 0.7 mg/dL (0.6-1.3); GLUCOSE 110 mg/dL (74-106); POTASSIUM 3.7 mmol/L (3.5-5.1); SODIUM SERUM 141 mmol/L (136-145); UREA NITROGEN, BLOOD 23 mg/dL (7-18)
[2024-02-11 17:02] LABS: ALBUMIN 3.1 g/dL (3.4-5.0); BILIRUBIN,DIRECT 0.3 mg/dL (0.0-0.3); TOTAL BILIRUBIN 1.6 mg/dL (0.0-1.0); TOTAL PROTEIN, SERUM 7.2 g/dL (6.4-8.2)
[2024-02-11] MEDS ORDERED: ONDA-188 SL (17:29)
[2024-02-11] MEDS ORDERED: BEN10 PO (17:29)
[2024-02-11] MEDS: MORPHINE SULFATE 4 MG/ML SYR IM ONE (18:32)
== END 2024-02-11 19:48 | disposition home or self-care (01) ==
LOC: MED 14:03
DX: A08.4 Viral intestinal infection, unspecified (principal); I10 Essential (primary) hypertension; Z79.899 Other long term (current) drug therapy; Z79.01 Long term (current) use of anticoagulants; Z88.2 Allergy status to sulfonamides; Z88.8 Allergy status to other drugs, medicaments and biological substances; Z88.5 Allergy status to narcotic agent
CPT/HCPCS: 36415; 74240; 80048; 80076; 83690; 85025; 96372; 99284; J1885; J2270; Q9967